=== PATIENT | male | born 1975 | race Caucasian/White ===

== ENCOUNTER → 2017-06-28 | Outpatient (CLI) | payer BC ==
--- NOTE | 2017-06-28 14:09 | REP ---
Right hand series: Four views. History: Contusion. No comparison hand images. Findings: Incidental note is made of a carpal coalition involving the luno-triquetral articulation. There is soft tissue swelling over the distal end of the 5th metacarpal. No fracture or subluxation is seen. Impression: Luno-triquetral carpal coalition noted incidentally. No fracture seen. Signed by Cassius Miranda MD 06/28/2017 02:59 P
== END ==
LOC: M WUC 13:10
PROVIDERS: ATTEND Physician Assistant
DX: S60.221A Contusion of right hand, initial encounter (principal); X58.XXXA Exposure to other specified factors, initial encounter; Y92.89 Other specified places as the place of occurrence of the external cause; Y93.89 Activity, other specified; Y99.8 Other external cause status

== ENCOUNTER → 2019-08-21 | Outpatient (CLI) | payer BC ==
--- NOTE | 2019-08-21 17:59 | REP ---
Clinical: Sprain . Technique: AP, lateral, bilateral oblique views right ankle . Findings: Mild/moderate lateral swelling. No definite/obvious acute fracture appreciated. No dislocation. Skeletal structures and joint spaces are intact and normal. Ankle mortise appears stable. No subcutaneous emphysema or radiodense foreign body. Impression: Lateral swelling. No definite acute fracture. Electronically Signed by Hernan Acosta MD 08/21/2019 05:51 P
--- NOTE | 2019-08-21 18:02 | REP ---
Clinical: Trauma. Sprain. Technique: AP, lateral, bilateral oblique views right foot . Findings: Oblique image suggests a possible small fracture fragment along the anterolateral margin of the talus with overlying soft tissue swelling and clinical correlation is recommended. Remainder examination appears normal. Impression: 1. Possible minuscule fracture fragment along the anterolateral margin of the talus identified on oblique radiograph. Electronically Signed by Hernan Acosta MD 08/21/2019 05:54 P
== END ==
LOC: M WUC 10:15
PROVIDERS: ATTEND Physician Assistant
DX: S93.401A Sprain of unspecified ligament of right ankle, initial encounter (principal); S93.601A Unspecified sprain of right foot, initial encounter; X58.XXXA Exposure to other specified factors, initial encounter; Y92.9 Unspecified place or not applicable

== ENCOUNTER → 2022-07-20 | Outpatient (CLI) | payer SELFPAY | LOC: M WUC 14:11 | PROVIDERS: ATTEND Physician Assistant Medical | DX: M25.552 Pain in left hip (principal); M77.32 Calcaneal spur, left foot ==

== ENCOUNTER → 2022-10-03 | Outpatient (CLI) | payer OTHER, SELFPAY | LOC: M LABSMTC 11:05 | PROVIDERS: ATTEND Anesthesiology | DX: Z20.828 Contact with and (suspected) exposure to other viral communicable diseases (principal); Z11.59 Encounter for screening for other viral diseases ==

== ENCOUNTER 2022-10-06 09:12 | Day surgery (SDC) | payer OTHER ==
[~2022-10-06] VITALS: Ht 170.2 cm; Wt 93.0 kg
[~2022-10-06 09:12] MED LIST: NS 1,000 ML IV ONE
[2022-10-06] MEDS ORDERED: propofoL 200 MG/20 ML VIAL As Ordered ONE (10:15)
[2022-10-06] MEDS ORDERED: LIDOCAINE 2% 100MG/5ML SDV (FOR ANES.) As Ordered ONE (10:15)
[2022-10-06 12:02] VITALS: BP 136/86
== END 2022-10-06 12:05 | disposition home or self-care (01) ==
LOC: M OPP 09:12
PROVIDERS: ATTEND Internal Medicine Gastroenterology
DX: Z12.11 Encounter for screening for malignant neoplasm of colon (principal); K64.0 First degree hemorrhoids; G43.909 Migraine, unspecified, not intractable, without status migrainosus; Z87.891 Personal history of nicotine dependence; Z79.899 Other long term (current) drug therapy; Z91.030 Bee allergy status